=== PATIENT | male | born 1990 | race African-American/Black ===

== ENCOUNTER 2022-01-26 18:53 | Emergency (ER) | payer SELFPAY | END 2022-01-26 19:29 | disposition left against medical advice (07) | LOC: ANHED 19:20 | DX: R10.9 Unspecified abdominal pain (principal) | CPT/HCPCS: 99199 ==

== ENCOUNTER 2022-01-27 04:51 | Emergency (ER) | payer SELFPAY ==
--- NOTE | ~2022-01-27 | CT_ITS ---
CT Abdomen and Pelvis with contrast. History: Left groin pain. Spiral CT of the abdomen and pelvis was performed after the administration of intravenous contrast. 1 00 cc of Omnipaque 350 was administered intravenously without complication. Dose reduction technique was used on this scan by utilizing automated exposure control and iterative reconstruction technique. The dose-length product (DLP) was 494.03 mGy-cm. Findings: Scans through the lung bases are unremarkable. The liver, spleen, pancreas, gallbladder, adrenals and right kidney are within normal limits. There a re small, subtle wedge-shaped areas of decreased attenuation in the left renal parenchyma. No evidenc e of aortic aneurysm. There are shotty and mildly enlarged lymph nodes in the retroperitoneum, and mo re prominently along the bilateral external iliac chains. Right external iliac chain lymph node for e xample measures 2.9 x 1.7 cm (axial image 135). Shotty inguinal lymph nodes are also present. There is no evidence of bowel obstruction. There is no evidence to suggest acute appendicitis or dive rticulitis. Images through the pelvis were performed. Urinary bladder unremarkable. Prostate gland and seminal ve sicles are unremarkable. No ascites is seen. Impression: Small wedge-shaped areas of decreased attenuation the left renal parenchyma. Consider pyelonephritis versus possibly small renal infarcts. Correlate with urinalysis and patient symptomatology. Enlarged bilateral external iliac chain lymph nodes with additional shotty retroperitoneal and inguin al lymph nodes, nonspecific. Consider reactive/inflammatory lymph nodes versus any possibility of lym phoma or other metastatic disease. Reviewed, dictated and finalized at location [] G[facility] SPECIALIST Impression: Small wedge-shaped areas of decreased attenuation the left renal parenchyma. Co nsider pyelonephritis versus possibly small renal infarcts. Correlate with urin alysis and patient symptomatology. Enlarged bilateral external iliac chain lymph nodes with additional shotty retr operitoneal and inguinal lymph nodes, nonspecific. Consider reactive/inflammato ry lymph nodes versus any possibility of lymphoma or other metastatic disease.
[2022-01-27 05:00] VITALS: BP 158/98; PULSE 118; RESP 16; TEMP 36.7; O2SAT 100
[2022-01-27 06:26] VITALS: PULSE 100; RESP 18; O2SAT 100
--- NOTE | 2022-01-27 07:14 | ED.ABDPAIN ---
HPI - Abdominal Pain General Chief Complaint: Abdominal Pain Stated Complaint: abdominal pain Time Seen by Provider: 01/27/22 06:53 History of Present Illness HPI narrative: 31-year-old male presenting to the emergency department for evaluation of recurrent left-sided groin pain. Patient states this has been ongoing for extended period of time. Patient was diagnosed with a urinary tract infection and related on Thursday and was started on doxycycline. Patient reports after taking the medication he had a worsening of the same symptoms that initially brought him to the emergency department. Patient states he did attempt to have rest and see if this would help but the pain did not improve. Patient denies any associated nausea vomiting or diarrhea. Patient denies any recent heavy lifting. Patient denies any falls or injuries. Related Data Allergies Allergy/AdvReac Type Severity Reaction Status Date / Time No Known Allergies Allergy Verified 01/27/22 07:43 Review of Systems Review of Systems: CONSTITUTIONAL: Denies fever, chills, or sweats. EYES: Denies visual changes, redness, or discharge. ENT: Denies rhinorrhea, congestion, sore throat, or otalgia. CARDIOVASCULAR: Denies chest pain, palpitations, or edema. RESPIRATORY: Denies cough or dyspnea. GASTROINTESTINAL: See HPI GENITOURINARY: Denies dysuria or hematuria. SKIN: Denies rash or itching. MUSCULOSKELETAL: Denies back pain, joint pain, or myalgia. NEUROLOGIC: Denies headache, numbness, or weakness. Exam Narrative: APPEARANCE: Well appearing, no pain, no distress, well-nourished. HEAD: normocephalic, atraumatic. EYES: PERRLA/EOMI, conjunctivae clear. NOSE: Normal no drainage NECK: Supple. No adenopathy, no masses. RESPIRATORY: Airway patent, respirations nonlabored. Clear to auscultation bilaterally, no rales, rhonchi, wheezing. CARDIOVASCULAR: Regular rate and rhythm without murmurs rubs or gallops. ABDOMINAL: Tenderness over the left inguinal region. No incarcerated hernia. MUSCULOSKELETAL: Moves all extremities. Strength/ROM intact, No edema, No calf tenderness. NEURO: Alert. Cranial nerves II through XII intact. Grossly intact SKIN: Warm, dry. Normal Color Course Course Emergency Course: UA was concerning for possible urinary tract infection. Patient has been on antibiotics for the last few days. CT scan also showed evidence of pyelonephritis. CT showed evidence of enlarged inguinal lymph nodes. Patient does not live locally. Patient was encouraged to continue to take his doxycycline and was also encouraged to have close follow-up with his primary care physician for further investigation of the enlarged lymph nodes. Vital Signs Vital signs: Vital Signs Temperature 98.1 F 01/27/22 05:00 Pulse Rate 118 H 01/27/22 05:00 Respiratory Rate 16 01/27/22 05:00 Blood Pressure 158/98 H 01/27/22 05:00 Pulse Oximetry 100 01/27/22 05:00 Oxygen Delivery Room Air 01/27/22 05:00 Temperature 98.1 F 01/27/22 05:00 Pulse Rate 76 01/27/22 09:21 Respiratory Rate 18 01/27/22 09:21 Blood Pressure 149/89 H 01/27/22 09:21 Pulse Oximetry 100 01/27/22 09:21 Oxygen Delivery Room Air 01/27/22 05:00 MDM - Abdominal Pain Lab Data 01/27/22 07:20 01/27/22 07:20 Labs: Lab Results 01/27/22 01/27/22 01/27/22 Range/Units 07:20 07:20 07:20 WBC 5.4 (4.5-10.0) K/mm3 RBC 3.46 L (4.6-6.20) M/mm3 Hgb 10.0 L (14.0-18.0) g/dL Hct 30.7 L (42.0-52.0) % MCV 88.7 (80-100) fl MCH 28.9 (26-34) pg MCHC 32.6 (32-36) g/dl RDW 14.0 (11.5-14.5) % Plt Count 530 H (150-375) k/mm3 MPV 8.8 (7.4-10.4) fl Immature Gran % (Auto) 0.7 H (0-0.5) % Neut % (Auto) 61.7 (45.5-73.1) % Lymph % (Auto) 23.9 (18.3-44.2) % Dickenson % (Auto) 12.0 H (2.6-8.5) % Eos % (Auto) 1.5 (0-4.4) % Baso % (Auto) 0.2 (0.2-1.2) % Lymph # (Auto) 1.30 (0.9-3.2) K/mm3 Dickenson # (Auto)
[2022-01-27 07:28] LABS: Add Urine Microscopic? YES; Appearance Urine Clear (Clear); Bilirubin Urine Negative (Negative); Blood Urine 1+ (Negative); Color Urine Yellow (Yellow); Glucose Urine UA Negative (Negative); Ketones Urine Negative (Negative); Leukocyte Esterase Ur Negative LEU/UL (Negative); Nitrate Urine Negative (Negative); Protein Urine 2+ mg/dL (Negative); Specific Grav Ur >= 1.030 (1.001-1.035); pH Urine 5.5 (5.0-9.0)
[2022-01-27 07:30] LABS: Basophils Percent Auto 0.2 % (0.2-1.2); Eosinophils Absolute Auto 0.1 K/mm3 (0-0.3); Eosinophils Percent Auto 1.5 % (0-4.4); Hematocrit 30.7 % (42.0-52.0); Immature Granulocyte Absolute 0.04 K/mm3 (0.00-0.031); Immature Granulocyte Percent A 0.7 % (0-0.5); Lymphocytes Percent Auto 23.9 % (18.3-44.2); Mean Corpuscular HGB Conc 32.6 g/dl (32-36); Mean Corpuscular Hemoglobin 28.9 pg (26-34); Mean Corpuscular Volume 88.7 fl (80-100); Mean Platelet Volume 8.8 fl (7.4-10.4); Monocytes Absolute Auto 0.7 K/mm3 (0.1-0.6); Neutrophils Absolute Auto 3.4 K/mm3 (1.3-6.7); Neutrophils Percent Auto 61.7 % (45.5-73.1); Platelet Count Result 530 k/mm3 (150-375); Red Blood Count 3.46 M/mm3 (4.6-6.20); White Blood Count 5.4 K/mm3 (4.5-10.0)
[2022-01-27 07:39] LABS: Alanine Aminotransferase 74 U/L (6-50); Albumin Level 3.5 g/dL (3.5-5.1); Alkaline Phosphatase 125 U/L (38-126); Anion Gap 5 mmol/L (8-16); Aspartate Amino Transferase 46 U/L (17-59); Bilirubin,Total 0.6 mg/dL (0.2-1.3); Blood Urea Nitrogen 10 mg/dL (9-20); Calcium 8.6 mg/dL (8.4-10.2); Carbon Dioxide 35 mmol/L (22-30); Chloride 91 mmol/L (98-107); Estimated CRCL calculation 162 ml/min; Estimated Glomerular Filt Rate > 60; Glucose 162 mg/dL (65-110); Potassium 3.5 mmol/L (3.4-5.0); Sodium 131 mmol/L (137-145)
[2022-01-27 07:41] VITALS: BP 166/100; PULSE 90; RESP 18; O2SAT 100
[2022-01-27 07:45] LABS: Mucus Urine Rare /lpf; Squamous Epithelial Cell Urine Rare /hpf (Few)
[2022-01-27 08:25] LABS: Influenza A QL RT-PCR Negative (Negative); Influenza B QL RT-PCR Negative (Negative); RSV RNA, RT-PCR Negative (Negative); SARS-CoV-2 RNA PCR Negative
[2022-01-27 09:21] VITALS: BP 149/89; PULSE 76; RESP 18; O2SAT 100
== END 2022-01-27 09:23 | disposition home or self-care (01) ==
PROVIDERS: Emergency Provider Emergency Medicine
DX: N10 Acute pyelonephritis (principal); R59.1 Generalized enlarged lymph nodes; Z20.822 Contact with and (suspected) exposure to COVID-19
CPT/HCPCS: 36415; 74177; 80053; 81001; 85025; 87086; 87637; 99284; Q9967